=== PATIENT | female | born 2000 | race Asian ===

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

== ENCOUNTER 2018-01-13 12:05 | Emergency (ER) | payer MEDICAID ==
[~2018-01-13] VITALS: Ht 172.7 cm; Wt 75.4 kg
[~2018-01-13 12:05] MED LIST: IBUP-1222 PO
[2018-01-13] MEDS ORDERED: AZITHROMYCIN 500 MG TABLET ONE (13:19)
[2018-01-13] MEDS ORDERED: ONDANSETRON ODT 4 MG ONE (13:19)
[2018-01-13] MEDS ORDERED: LIDOCAINE-MPF 1%, 2ML ONE (13:19)
[2018-01-13] MEDS ORDERED: CEFTRIAXONE 250 MG ONE (13:19)
[2018-01-13] MEDS ORDERED: HYDROcodone/APAP 5/325 TABLET ONE (13:20)
[2018-01-13 13:21] LABS: CULTURE INDICATED? YES; MICROSCOPIC INDICATED
[2018-01-13] MEDS ORDERED: AZITHROMYCIN 500 MG TABLET PO ONE (13:30)
[2018-01-13] MEDS ORDERED: HYDROcodone/APAP 5/325 TABLET PO ONE (13:30)
[2018-01-13] MEDS ORDERED: CEFTRIAXONE 250 MG IM ONE (13:30)
[2018-01-13] MEDS ORDERED: ONDANSETRON ODT 4 MG PO ONE (13:30)
[2018-01-13 14:12] LABS: CLUE CELLS NONE SEEN (NONE SEEN); WET PREP WBCS NONE SEEN (FEW)
[2018-01-13 14:19] VITALS: BP 116/70
[2018-01-13 14:54] LABS: HCG UR SG 1.029 (1.003-1.030)
== END 2018-01-13 15:38 | disposition home or self-care (01) ==
LOC: ED 15:25
DX: K62.5 Hemorrhage of anus and rectum (principal); K64.4 Residual hemorrhoidal skin tags; A59.01 Trichomonal vulvovaginitis
CPT/HCPCS: 81001; 81025; 87077; 87086; 87186; 87210; 87491; 87591; 87808; 96372; 99285; J0696; Q0162; 99284